=== PATIENT | male | born 1955 | race Caucasian/White ===

== ENCOUNTER 2021-01-04 18:15 | Emergency (ER) | payer OTHER ==
[~2021-01-04] VITALS: Ht 170.2 cm; Wt 109.0 kg
[2021-01-04] MEDS ORDERED: UNABLE MC (20:47)
--- NOTE | 2021-01-04 20:48 | PHYS DOC ---
General Adult EDM: Chief Complaint: LOWER EXT PAIN HPI: HPI: Patient is a 65 year old male who presents with 2 weeks ago was at work when he tripped over a low-lying foreign fellow very twisting his left ankle. He went to urgent care in which they put him in a boot and x-rayed his extremity. He states that they said that nothing was broken. He supposed to follow-up at the clinic tomorrow. Since then he has had increased pain especially with movement of the extremity and even having calf tenderness. He states that his toes will feel cool at times but the rest of his foot is warm. He states when he is just sitting there he has no pain but when he is up and moving or flexing the extremity is when he has pain of which is in the medial ankle and side of the foot and also the lateral ankle and side of the foot. The pain will shoot up into the calf. He rates his pain at 5 out of 10 but is refusing any pain medication. Review of Systems: Review of Systems: Constitutional: Denies fever or chills. [] Eyes: Denies change in visual acuity. [] HENT: Denies nasal congestion or sore throat. [] Respiratory: Denies cough or shortness of breath. [] Cardiovascular: Denies chest pain or edema. [] GI: Denies abdominal pain, nausea, vomiting, bloody stools or diarrhea. [] : Denies dysuria. [] Musculoskeletal: Denies back pain. + Left ankle, +left foot joint pain. + Left calf tenderness [] Integument: Denies rash. [] Neurologic: Denies headache, focal weakness or sensory changes. [] Endocrine: Denies polyuria or polydipsia. [] Lymphatic: Denies swollen glands. [] Psychiatric: Denies depression or anxiety. [] Heart Score: C/O Chest Pain: No Risk Factors: Risk Factors: DM, Current or recent (<one month) smoker, HTN, HLP, family history of CAD, obesity. Risk Scores: Score 0 - 3: 2.5% MACE over next 6 weeks - Discharge Home Score 4 - 6: 20.3% MACE over next 6 weeks - Admit for Clinical Observation Score 7 - 10: 72.7% MACE over next 6 weeks - Early Invasive Strategies Physical Exam: PE: Constitutional: Well developed, well nourished, no acute distress, non-toxic appearance. [] HENT: Normocephalic, atraumatic, bilateral external ears normal, oropharynx moist, no oral exudates, nose normal. [] Eyes: PERRLA, EOMI, conjunctiva normal, no discharge. [] Neck: Normal range of motion, no tenderness, supple, no stridor. [] Cardiovascular:Heart rate regular rhythm, no murmur [] Lungs & Thorax: Bilateral breath sounds clear to auscultation [] Abdomen: Bowel sounds normal, soft, no tenderness, no masses, no pulsatile masses. [] Skin: Warm, dry, no erythema, no rash. [] Back: No tenderness, no CVA tenderness. [] Extremities: Left calf tenderness, left lateral ankle and foot and left medial ankle and foot tenderness, no cyanosis, no clubbing, left ankle ROM not intact, left lateral ankle 1-2+ edema. [] Neurologic: Alert and oriented X 3, normal motor function, normal sensory function, no focal deficits noted. [] Psychologic: Affect normal, judgement normal, mood normal. [] EKG: EKG: [] Radiology/Procedures: Radiology/Procedures: [] Impression: [facility] [address] [place] [address] IMAGING REPORT Signed PATIENT: ARANZA NICK ACCOUNT: [id number] : 1955 LOCATION: ER AGE: 65 SEX: M EXAM STATUS: REG ER ORD. PHYSICIAN: ARCADIO RUSH APRN REASON: Left calf tenderness, left lower extremity tingling PROCEDURE: VENOUS LOWER EXTREMITY LEFT Examination: LEFT LOWER EXTREMITY - UNILATERAL VENOUS DOPPLER Technique: Ultrasound evaluation of the left lower extremity was performed from the groin to the upper calf with farah scale, spectral and color doppler evaluation. Indication: Leg swelling Comparison: None Findings: There is normal venous flow and compressibility of left common femoral vein, femoral vein, popliteal vein, and visualized proximal calf veins. Prominent left inguinal lymph nodes are incidentally seen, of uncertain clinical significance. Impression: No evidence for deep vein thrombosis of left lower extremity from the level of the calf veins to the groins. Electronically signed by: Danny Lyn MD (01/04/2021 9:07 PM) ARELIS DICTATED and SIGNED BY: DANNY LYN MD DATE: 01/04/[id number] 0 [facility] [address] [place] [address] IMAGING REPORT Signed PATIENT: ARANZA NICK ACCOUNT: [id number] : 1955 LOCATION: ER AGE: 65 SEX: M EXAM STATUS: REG ER ORD. PHYSICIAN: ARCADIO RUSH APRN REASON: left lower extremity increased pain with recent injury PROCEDURE: TIBIA FIBULA LEFT EXAM: AP and lateral views left tibia/fibula AP, oblique and lateral views left ankle AP, oblique and lateral views left foot DATE: 01/04/2021 9:27 PM INDICATION: Reason: left lower extremity tingling, calf tenderness / Spl. Instructions: / History: COMPARISON: No Prior FINDINGS: Soft tissue swelling about the left lower leg. No definite acute fracture or dislocation of the left lower leg, ankle or foot. Ankle mortise is congruent. Talar dome is intact. Midfoot degenerative changes are seen. Mild hallux valgus is suspected. Type II navicular. Forefoot soft tissue swelling. Calcaneal enthesopathy. IMPRESSION: 1. No evidence of acute fracture or dislocation. 2. Soft tissue swelling about the left lower leg Electronically signed by: Danny Lyn MD (01/04/2021 10:42 PM) ARELIS DICTATED and SIGNED BY: DANNY LYN MD DATE: 01/04/[id number] 0 Course & Med Decision Making: Course & Med Decision Making Pertinent Labs and Imaging studies reviewed. (See chart for details) See HPI. Pedal pulses strong are present. Skin is pink warm and dry. Cap refill less than 2 seconds. There is calf tenderness with palpation. Patient has full sensations. He can wiggle his toes. He does have range of motion at the ankle but he states is very painful to move the ankle. No joint laxity. 1 + swelling at lateral ankle with tenderness to lateral ankle and foot and medial ankle and foot. Ultrasound shows no DVTs. Patient to continue wearing his boot and to follow-up at the clinic tomorrow as scheduled. I have offered patient pain medication and he is refusing. He states he does not take pain medications. Dr Barbour has looked over images and there are no obvious acute fractures or abnormalities. [] Esteban Disclaimer: Esteban Disclaimer: This electronic medical record was generated, in whole or in part, using a voice recognition dictation system. Departure Departure Impression: Primary Impression: Lower extremity pain, left Disposition: 01 DC HOME SELF CARE/HOMELESS Condition: STABLE Referrals: UNKNOWN PCP NAME (PCP) ARAVIND CEBALLOS MD Patient Instructions: Ankle Pain Additional Instructions: I have referred you to an orthopedic doctor to follow-up with. Or you can follow-up with the clinic as scheduled tomorrow. Take Tylenol or ibuprofen for any kind of pain. Continue wearing the boot. ARCADIO RUSH APRN Jan 04, 2021 20:48
--- NOTE | 2021-01-04 21:09 | RAD ---
Examination: LEFT LOWER EXTREMITY - UNILATERAL VENOUS DOPPLER Technique: Ultrasound evaluation of the left lower extremity was performed from the groin to the uppe r calf with farah scale, spectral and color doppler evaluation. Indication: Leg swelling Comparison: None Findings: There is normal venous flow and compressibility of left common femoral vein, femoral vein, popliteal vein, and visualized proximal calf veins. Prominent left inguinal lymph nodes are incidenta lly seen, of uncertain clinical significance. Impression: No evidence for deep vein thrombosis of left lower extremity from the level of the calf v eins to the groins. Electronically signed by: Danny Perez MD (01/04/2021 9:07 PM) ARELIS
[2021-01-04 22:36] VITALS: BP 131/90
--- NOTE | 2021-01-04 22:44 | RAD ---
EXAM: AP and lateral views left tibia/fibula AP, oblique and lateral views left ankle AP, oblique and lateral views left foot DATE: 01/04/2021 9:27 PM INDICATION: Reason: left lower extremity tingling, calf tenderness / Spl. Instructions: / History: COMPARISON: No Prior FINDINGS: Soft tissue swelling about the left lower leg. No definite acute fracture or dislocation of the left lower leg, ankle or foot. Ankle mortise is congruent. Talar dome is intact. Midfoot degenerative curran ges are seen. Mild hallux valgus is suspected. Type II navicular. Forefoot soft tissue swelling. Calc aneal enthesopathy. IMPRESSION: 1. No evidence of acute fracture or dislocation. 2. Soft tissue swelling about the left lower leg Electronically signed by: Danny Perez MD (01/04/2021 10:42 PM) ARELIS
== END 2021-01-04 22:55 | disposition home or self-care (01) ==
LOC: ER 18:15
DX: M25.572 Pain in left ankle and joints of left foot (principal); G89.11 Acute pain due to trauma; M79.672 Pain in left foot; M79.662 Pain in left lower leg; W22.8XXA Striking against or struck by other objects, initial encounter; Y93.89 Activity, other specified; Y92.69 Other specified industrial and construction area as the place of occurrence of the external cause; Y99.0 Civilian activity done for income or pay
CPT/HCPCS: 73590; 73610; 73630; 93971; 99285-25

== ENCOUNTER → 2021-01-12 | Outpatient (CLI) | payer OTHER ==
[2021-01-04 22:36] VITALS: BP 131/90
[~2021-01-12] MED LIST: UNABLE MC
--- NOTE | 2021-01-12 10:01 | KCIC ---
XR EYE_DETECT FOREIGN BODY History: Reason: MRI CLEARANCE - FOR FOREIGN BODY / Spl. Instructions: / History: Technique: 2 views skull for MRI clearance. Comparison: None. Findings: No radiopaque foreign body. Vascular calcifications. Impression: 1. No radiopaque foreign body. Electronically signed by: Russell eMredith DO (01/12/2021 9:59 AM) [id number]
--- NOTE | 2021-01-12 13:28 | KCIC ---
EXAMINATION: MRI LEFT ANKLE WITHOUT IV CONTRAST CLINICAL HISTORY: Left heel and anterior ankle pain following fall at work 12/21/2020. TECHNIQUE: Multiplanar multisequential images obtained through the ankle without intravenous contrast . COMPARISON: Left ankle radiographs 01/04/2021 FINDINGS: Anterior Talofibular Ligament: Within normal limits. Posterior Talofibular Ligament: Within normal limits. Anterior-Inferior Tibiofibular Ligament: Within normal limits. Posterior Tibiofibular Ligament: Within normal limits. Calcaneofibular Ligament: Within normal limits. Deltoid Ligament: Within normal limits. Spring Ligament: Within normal limits. Posterior Tibial Tendon: Within normal limits. Flexor Digitorum Longus Tendon: Within normal limits. Flexor Hallucis Longus Tendon: Within normal limits. Peroneal Tendons: Within normal limits. Extensor Tendons: Within normal limits. Achilles Tendon: Within normal limits. Bone Marrow: Accessory navicular with degenerative changes at the synchondrosis. No acute fracture or suspicious marrow replacing process. Talar Dome: Small areas of subchondral marrow edema/cystic changes in the medial greater than lateral aspects of the mid talar dome, compatible with osteochondral lesions. Minimal articular surface depr ession and tiny round hypointensity separate from the cortex overlying the lateral lesion, suggestive of remote minimally displaced osteochondral fragment. Plantar Fascia: Within normal limits. Tarsal Tunnel/Sinus Tarsi: Within normal limits. Joint Fluid: No joint effusion or synovitis. IMPRESSION: Findings compatible with 2 small osteochondral lesions in the talar dome with probable remote minimal ly displaced tiny osteochondral fragment as described. No acute ligamentous injury. Electronically signed by: Jacinto Decker DO (01/12/2021 1:25 PM) [id number]
== END ==
LOC: KCIC MRI 09:21
PROVIDERS: ATTEND Emergency Medicine
DX: M93.279 Osteochondritis dissecans, unspecified ankle and joints of foot (principal); T15.90XA Foreign body on external eye, part unspecified, unspecified eye, initial encounter
CPT/HCPCS: 70030; 73721